=== PATIENT | female | born 2000 | race Hispanic/Latino ===

== ENCOUNTER 2020-02-07 17:32 | Emergency (ER) | payer OTHER ==
[2020-02-07 18:36] LABS: RAPID GROUP A STREP NEGATIVE (NEGATIVE)
== END 2020-02-07 19:39 | disposition home or self-care (01) ==
LOC: EDH 17:32
DX: J06.9 Acute upper respiratory infection, unspecified (principal); Z20.828 Contact with and (suspected) exposure to other viral communicable diseases; Z88.5 Allergy status to narcotic agent
CPT/HCPCS: 87426; 87804; 87880

== ENCOUNTER 2021-07-01 01:45 | Emergency (ER) | payer OTHER ==
[~2021-07-01] VITALS: Ht 165.1 cm; Wt 124.3 kg
[2021-07-01] MEDS ORDERED: 0.9%NACL 1000ML 1,000 ML IV ONE (03:00)
[2021-07-01] MEDS ORDERED: IPRATROPIUM/ALBUTEROL SULFATE 3 ML SOLUTION IH ONE (03:00)
[2021-07-01] MEDS ORDERED: BENZONATATE 100 MG CAPSULE PO ONE (03:00)
[2021-07-01] MEDS ORDERED: ACETAMINOPHEN 500 MG TABLET PO ONE (03:00)
[2021-07-01 03:11] LABS: CREATININE 0.7 mg/dL (0.5-1.5); POTASSIUM 3.7 mmol/L (3.5-5.1)
[2021-07-01 03:16] LABS: ALBUMIN 3.8 g/dL (3.5-5.0); BILIRUBIN,TOTAL 0.4 mg/dL (0.2-1.0); TOTAL PROTEIN, SERUM 7.8 g/dL (6.0-8.3)
[2021-07-01] MEDS ORDERED: ONDANSETRON 4MG INJ ONE (03:24)
[2021-07-01 03:25] LABS: BASOPHILS % (AUTO) 0.6 % (0.0-5.0); EOSINOPHILS % (AUTO) 3.4 % (0.0-8.0); HEMATOCRIT 38.2 % (36-48); LYMPHOCYTES % (AUTO) 32.6 % (21.0-51.0); MEAN CORPUSCULAR HEMOGLOBIN 28.2 pg (27.0-33.0); MEAN CORPUSCULAR HGB CONC 32.2 g/dL (32.0-36.0); MEAN CORPUSCULAR VOLUME 87.6 fL (79-99); MONOCYTES % (AUTO) 10.2 % (3.0-13.0); NEUTROPHILS % (AUTO) 52.8 % (40.0-77.0); PLATELET COUNT (AUTO) 143 K/uL (130-400); RED BLOOD CELL COUNT(AUTO) 4.36 MIL/uL (4.00-5.50); RED CELL DISTRIBUTION WIDTH 12.7 % (11.0-15.5); WHITE BLOOD COUNT (AUTO) 9.6 K/uL (4.8-10.8)
[2021-07-01] MEDS ORDERED: ONDANSETRON 4MG INJ IVP ONE (03:30)
[2021-07-01] MEDS ORDERED: CEFTRIAXONE 1G VIAL ONE (04:13)
[2021-07-01] MEDS ORDERED: CEFTRIAXONE 1G VIAL IVP ONE (04:30)
[2021-07-01] MEDS ORDERED: FLUT16H NASAL (04:47)
[2021-07-01] MEDS ORDERED: PROM25TA7 PO (04:47)
[2021-07-01] MEDS ORDERED: AZIT250T9 PO (04:47)
[2021-07-01] MEDS ORDERED: BENZ-39 PO (04:47)
[2021-07-01] MEDS ORDERED: ALBU8.5H8 IH (04:47)
[2021-07-01] MEDS ORDERED: AZITHROMYCIN 250 MG TABLET PO ONE (05:00)
[2021-07-01 05:09] VITALS: BP 132/81
== END 2021-07-01 05:46 | disposition home or self-care (01) ==
LOC: EDH 01:45
DX: J01.90 Acute sinusitis, unspecified (principal); J40 Bronchitis, not specified as acute or chronic; E87.1 Hypo-osmolality and hyponatremia; Z20.822 Contact with and (suspected) exposure to COVID-19
CPT/HCPCS: 36415; 71045; 80053; 81025; 82550; 83605; 85025; 87635; 87804 ×2; 87880; 93005; 94640; 96361; 96374; 96375; 99285; C9803; J0696; J2405; J7030